=== PATIENT | male | born 1945 | race Caucasian/White ===

== ENCOUNTER → 2017-10-19 | Outpatient (CLI) | payer OTHER, MEDICARE ==
[~2017-10-19] MED LIST: ASPI81TA21 PO
[2017-10-19 10:13] LABS: BASO ABS # 0.03 K/uL (0-0.2); BLOOD UREA NITROGEN 21 mg/dl (7-18); BUN/CREATININE RATIO 25.5 (10-20); CALCIUM 8.6 mg/dl (8.5-10.1); CARBON DIOXIDE 28 mmol/L (21-32); CHLORIDE 105 mmol/L (98-107); COMPLETE YES; CREATININE 0.83 mg/dl (0.60-1.40); EOS % 6.1 %; GLUCOSE 94 mg/dl (70-99); HEMATOCRIT 44.1 % (42-52); IG% 0.3 %; LYMPH % 24.7 %; LYMPH ABS # 0.73 K/uL (1.2-3.4); MEAN CELL VOLUME 88.4 fL (80-100); MEAN CORPUSCULAR HEMOGLOBIN 31.1 pg (25-34); MEAN CORPUSCULAR HGB CONC 35.1 g/dl (32-36); MEAN PLATELET VOLUME 9.7 fL (7.4-10.4); MONO % 11.9 %; PLATELET COUNT 185 K/uL (130-400); RED BLOOD COUNT 4.99 M/uL (4.7-6.1); SODIUM 140 mmol/L (136-145); WHITE BLOOD COUNT 2.95 K/uL (4.8-10.8)
[2017-10-19 10:25] LABS: CHOLESTEROL 205 mg/dl (0-200); CHOLESTEROL/HDL RATIO 2.6; HDL CHOLESTEROL 80 mg/dl; LDL CHOLESTEROL CALCULATED 106 mg/dl; PROSTATE SPECIFIC ANTIGEN 0.656 ng/ml (0.000-4.000); TRIGLYCERIDES 97 mg/dl (0-150); VERY LOW DENSITY LIPOPROT CALC 19 mg/dl
== END | disposition home or self-care (01) ==
LOC: C.LAB1850 07:04
PROVIDERS: ATTEND Internal Medicine
DX: D72.819 Decreased white blood cell count, unspecified (principal); Z12.5 Encounter for screening for malignant neoplasm of prostate; Z13.220 Encounter for screening for lipoid disorders